=== PATIENT | male | born 1980 | race Caucasian/White ===

== ENCOUNTER → 2017-05-31 15:27 | Outpatient (CLI) | payer OTHER | END | disposition home or self-care (01) | LOC: D.CT 15:27 | DX: R19.07 Generalized intra-abdominal and pelvic swelling, mass and lump (principal) ==

== ENCOUNTER → 2017-06-16 12:43 | Outpatient (CLI) | payer OTHER | END | disposition home or self-care (01) | LOC: D.NM 12:43 | DX: R10.11 Right upper quadrant pain (principal) ==

== ENCOUNTER → 2017-07-21 13:24 | Outpatient (CLI) | payer OTHER | END | disposition home or self-care (01) | LOC: D.NM 07-14 09:30 | DX: R10.9 Unspecified abdominal pain (principal); R11.2 Nausea with vomiting, unspecified ==